=== PATIENT | male | born 1950 | race Caucasian/White ===

== ENCOUNTER 2016-10-27 08:43 | Emergency (ER) | payer MEDICARE, OTHER ==
[2016-10-27] MEDS ORDERED: MUPIROCIN 2% OINT 1 GM TOP STA (09:24)
[2016-10-27] MEDS ORDERED: MUPIROCIN 2% OINT 1 GM ONE (09:26)
== END 2016-10-27 09:33 | disposition home or self-care (01) ==
DX: S80.812A Abrasion, left lower leg, initial encounter (principal); L25.1 Unspecified contact dermatitis due to drugs in contact with skin; T49.0X5A Adverse effect of local antifungal, anti-infective and anti-inflammatory drugs, initial encounter; W22.8XXA Striking against or struck by other objects, initial encounter; Y92.017 Garden or yard in single-family (private) house as the place of occurrence of the external cause; G30.9 Alzheimer's disease, unspecified; F02.80 Dementia in other diseases classified elsewhere, unspecified severity, without behavioral disturbance, psychotic disturbance, mood disturbance, and anxiety; E11.9 Type 2 diabetes mellitus without complications
CPT/HCPCS: 99283; A9270

== ENCOUNTER 2018-08-10 10:33 | Emergency (ER) | payer MEDICARE, OTHER ==
--- NOTE | 2018-08-10 10:48 | ED Physician Documentation ---
PD HPI UPPER EXT INJURY - Stated complaint Stated Complaint: GLF/ELBOW LAC - Chief complaint Chief Complaint: Laceration - History obtained from History obtained from: Patient - History of Present Illness Location: Right, Elbow Type of injury: Fall, Blunt / blow (he says he tripped on ice and fell backward/side, landing on right elbow, with laceration posterior elbow. No effus ion. Came diretly to ER. Has full ROM of the elbow joint. Did not strike head nor neck.) Timing - onset: Today Timing - details: Abrupt onset, Still present Worsened by: Palpating. No: Moving Associated symptoms: No: Weakness, Numbness, Swelling Review of Systems Constitutional: denies: Fever, Chills Nose: denies: Rhinorrhea / runny nose, Congestion Throat: denies: Sore throat Respiratory: denies: Cough Neurologic: denies: Confused, Altered mental status, Headache, Head injury PD PAST MEDICAL HISTORY - Past Medical History Past Medical History: Yes Cardiovascular: None Respiratory: None Endocrine/Autoimmune: Type 2 diabetes - Past Surgical History Past Surgical History: No - Present Medications Home Medications: Ambulatory Orders Medication Instructions Recorded Confirmed No Known Home Medications 08/10/18 08/10/18 - Allergies Allergies/Adverse Reactions: Allergies Allergy/AdvReac Type Severity Reaction Status Date / Time No Known Drug Allergies Allergy Verified 08/10/18 10:45 - Social History Does the pt smoke?: No Smoking Status: Never smoker Does the pt drink ETOH?: Yes ETOH Use: Wine Does the pt have substance abuse?: No - Immunizations Immunizations are current?: Yes Immunizations: TDAP current <10years - POLST Patient has POLST: No PD ED PE NORMAL - Vitals Vital signs reviewed: Yes - General General: Alert and oriented X 3, No acute distress, Well developed/nourished - Back Back: No spinal TTP - Derm Derm: Normal color, Warm and dry - Extremities Extremities: Other (right elbow posteriorly with laceration. No bony tenderness. Full ROM of the elbow without ro) - Neuro Neuro: No motor deficit, No sensory deficit Results - Vitals Vitals: Vital Signs - 24 hr 08/10/18 08/10/18 10:37 11:33 Temperature 36.6 C Heart Rate 85 86 Respiratory 18 18 Rate Blood Pressure 167/105 H 165/100 H O2 Saturation 99 99 Oxygen O2 Source Room air Procedures - Laceration (location) right posterior elbow Length in cm: 1.8 Wound type: Curved, Into subcut fat, Clean Neurovascular status: Sensory intact, Motor intact Tendon involvement: No: Tendon Injury Anesthesia: Lidocaine 2% Wound Preparation: Irrigated copiously NS Skin layer closure: Nylon, Interrupted, Size #-0 - enter number (4), Sutures - enter # (7) Other: Patient tolerated well, No complications, Neurovascular intact, Dressing applied, Tetanus UTD Departure - Departure Disposition: 01 Home, Self Care Clinical Impression: Fall due to ice or snow Qualifiers: Encounter type: initial encounter Qualified Code(s): W00.9XXA - Unspecified fall due to ice and snow, initial encounter Laceration of elbow Qualifiers: Encounter type: initial encounter Laterality: right Qualified Code(s): S51.011A - Laceration without foreign body of right elbow, initial encounter Condition: Stable Record reviewed to determine appropriate education?: Yes Instructions: ED Laceration All Follow-Up: Venu Hewitt MD [Primary Care Provider] - Comments: It is okay to wash and shower. Clean off the wound twice a day with soap and water, or peroxide and water. Apply some antibiotic ointment to it to keep it moist. Also to watch for signs of infection such as purulence, redness or increasing pain. Return to your primary care or the ER at the specified time for suture removal. Suture removal 9 or 10 days. Tylenol or ibuprofen if needed for pains. Gentle regular use of the elbow is okay. Try to avoid really heavy lifting. Discharge Date/Time: 08/10/18 11:32
[2018-08-10] MEDS ORDERED: BACITRACIN OINT TOP ONE (11:27)
[2018-08-10 11:35] VITALS: BP 165/100
== END 2018-08-10 11:32 | disposition home or self-care (01) ==
LOC: ED 10:33
DX: S51.011A Laceration without foreign body of right elbow, initial encounter (principal); W00.0XXA Fall on same level due to ice and snow, initial encounter; E11.9 Type 2 diabetes mellitus without complications
CPT/HCPCS: 12001; 99282; 99283; A9270